=== PATIENT | male | born 1970 | race Caucasian/White ===

== ENCOUNTER 2017-03-31 00:47 | Emergency (ER) | payer MEDICARE ==
[2017-03-31 00:55] VITALS: RESP 18
[2017-03-31] MEDS ORDERED: CEPHALEXIN 500MG STARTER PACK 4 CAP BTL PO STA (01:36)
--- NOTE | 2017-03-31 01:36 | ED ---
Skin/Abscess/FB HPI - General Chief complaint: Skin/Abscess/Foreign Body Stated complaint: bug bite Time Seen by Provider: 03/31/17 01:05 Source: patient, RN notes reviewed, old records reviewed Mode of arrival: ambulatory Limitations: no limitations - History of Present Illness Initial comments: 46 year old male with infected mosquito bite on his back. Reports that his daughter squeezed pus out of it 2 days ago, and is concerned he noticed black over the site. Patient states he has no history of MRSA. He has no fever, chills , nausea, vomiting, chest pain, shortness of breath, or other lesions. - Related Data Home Medications Medication Instructions Recorded Confirmed Albuterol Nebulized [Ventolin 2.5 mg INHALATION RT-Q4H PRN 07/31/16 07/31/16 Nebulized] Albuterol Sulfate [Proair Hfa] 2 puff INHALATION RT-Q6H PRN 07/31/16 07/31/16 Aspirin 81 mg PO DAILY 07/31/16 07/31/16 Nitroglycerin Sl Tabs [Nitrostat] 0.4 mg SUBLINGUAL Q5M PRN 07/31/16 07/31/16 Previous Rx's Medication Instructions Recorded Atorvastatin [Lipitor] 40 mg PO DAILY #30 tab 08/01/16 Cephalexin [Keflex] 500 mg PO Q8HR #21 cap 03/31/17 Mupirocin 2% Oint [Bactroban 2% 1 applic TOPICAL TID #1 tube 03/31/17 Oint] Allergies Allergy/AdvReac Type Severity Reaction Status Date / Time No Known Allergies Allergy Verified 03/31/17 00:55 Review of Systems ROS Statement: Those systems with pertinent positive or pertinent negative responses have been documented in the HPI. ROS Other: All systems not noted in ROS Statement are negative. Past Medical History Past Medical History: Asthma, Chest Pain / Angina, COPD, Hyperlipidemia, Myocardial Infarction ([place]), Sleep Apnea/CPAP/BIPAP Additional Past Medical History / Comment(s): bleeding ulcer Last Myocardial Infarction Date:: 2009 History of Any Multi-Drug Resistant Organisms: None Reported Past Surgical History: Heart Catheterization With Stent Additional Past Surgical History / Comment(s): hernia surgery Past Anesthesia/Blood Transfusion Reactions: No Reported Reaction Additional Past Anesthesia/Blood Transfusion Reaction / Comment(s): PT CODED DURING SX Date of Last Stent Placement:: 2013 Past Psychological History: Anxiety, Depression Smoking Status: Current every day smoker Past Alcohol Use History: Occasional Past Drug Use History: Marijuana - Past Family History Father Family Medical History: Myocardial Infarction ([place]) Additional Family Medical History / Comment(s): ALCOHOLIC Mother Family Medical History: Cancer, Coronary Artery Disease (CAD), Diabetes Mellitus , Myocardial Infarction ([place]) Additional Family Medical History / Comment(s): CABG General Exam - General Exam Comments Initial Comments: Well appearing 46 year old male, no distress. Limitations: no limitations General appearance: alert, in no apparent distress Head exam: Present: atraumatic, normocephalic, normal inspection Eye exam: Present: normal appearance, PERRL, EOMI. Absent: scleral icterus, conjunctival injection, periorbital swelling ENT exam: Present: normal exam, mucous membranes moist Neck exam: Present: normal inspection. Absent: tenderness, meningismus, lymphadenopathy Respiratory exam: Present: normal lung sounds bilaterally. Absent: respiratory distress, wheezes, rales, rhonchi, stridor Cardiovascular Exam: Present: regular rate, normal rhythm, normal heart sounds. Absent: systolic murmur, diastolic murmur, rubs, gallop, clicks GI/Abdominal exam: Present: soft, normal bowel sounds. Absent: distended, tenderness, guarding, rebound, rigid Extremities exam: Present: normal inspection, full ROM, normal capillary refill. Absent: tenderness, pedal edema, joint swelling, calf tenderness Back exam: Present: other (mild erythema lesion over right lumbar paraspinal region. Area of scabbing concerned with Patient concern of "black" to the area. ). Absent: normal inspection Neurological exam: Present: alert, oriented X3, CN II-XII intact Psychiatric exam: Present: normal affect, normal mood Skin exam: Present: warm, dry, intact, normal color. Absent: rash Course Vital Signs 03/31/17 03/31/17 00:52 02:36 Temperature 99.2 F 98.3 F Pulse Rate 93 82 Respiratory 18 18 Rate Blood Pressure 141/77 119/71 O2 Sat by Pulse 98 97 Oximetry Medical Decision Making - Medical Decision Making 46 year old male with infected mosquito bite on his back. Reports that his daughter squeezed pus out of it 2 days ago, and is concerned he noticed black over the site. Patient states he has no history of MRSA. Patient has a 3 cm lesion of erythema and scabbing over posterior right lumbar paraspinal region. No fluctation or drainage. Patient will be started on keflex and mupirocin. Return parameters discussed. Disposition Clinical Impression: Bug bite with infection Disposition: HOME SELF-CARE Condition: Good Instructions: Insect Bite or Sting (ED) Additional Instructions: Monitor for any signs of infection. Complete her antibiotic prescription. Return to the emergency department if any alarming signs or symptoms occur. Prescriptions: Cephalexin [Keflex] 500 mg PO Q8HR #21 cap Mupirocin 2% Oint [Bactroban 2% Oint] 1 applic TOPICAL TID #1 tube Referrals: Shannan Ndiaye MD [Primary Care Provider] - 1-2 days Time of Disposition: 01:32
[2017-03-31 02:40] VITALS: BP 119/71; PULSE 82; TEMP 98.3
== END 2017-03-31 02:06 | disposition home or self-care (01) ==
LOC: EC 00:47
DX: S30.860A Insect bite (nonvenomous) of lower back and pelvis, initial encounter (principal); I25.2 Old myocardial infarction; F17.200 Nicotine dependence, unspecified, uncomplicated; Z79.82 Long term (current) use of aspirin; W57.XXXA Bitten or stung by nonvenomous insect and other nonvenomous arthropods, initial encounter
CPT/HCPCS: 99283

== ENCOUNTER 2021-05-16 09:53 | Day surgery (SDC) | payer MEDICARE ==
[2021-05-12 12:41] VITALS: BMI 29.5
[~2021-05-16 09:53] MED LIST: LACTATED RINGERS 1,000 ML IV SCH; LIDOCAINE 1% (10MG/ML) FOR IV START INTRADERMA PRN
[2021-05-16 10:09] VITALS: TEMP 97.9
[2021-05-16] MEDS ORDERED: LIDOCAINE-D5W PMX 2G/250ML 2,000 MG in DEXTROSE/WATER 1 250ML.BAG IV ONE (10:09)
[2021-05-16] MEDS ORDERED: LACTATED RINGERS 1,000 ML IV ONE (10:09)
[2021-05-16] MEDS ORDERED: LIDOCAINE 1% INJ 10MG/ML (20 ML MDV) ONE (11:29)
[2021-05-16] MEDS ORDERED: fentaNYL (PF) 50 MCG/ML 2 ML AMP ONE (11:29)
[2021-05-16] MEDS ORDERED: PROPOFOL 10 MG/ML 20 ML VIAL IV ONE (11:29)
[2021-05-16] MEDS ORDERED: MIDAZOLAM 2 MG/2 ML VIAL ONE (11:29)
[2021-05-16 12:04] VITALS: RESP 16
--- NOTE | 2021-05-16 12:23 | P.GSHP ---
History of Present Illness H&P Date: 05/16/21 Chief Complaint: GI bleed Is a 50-year-old male undergoing workup for GI bleed. He had an episode of rectal bleeding approximately month ago. Past Medical History Past Medical History: Asthma, Coronary Artery Disease (CAD), Chest Pain / Angina, COPD, Hyperlipidemia, Myocardial Infarction ([place]), Sleep Apnea/CPAP/BIPAP Additional Past Medical History / Comment(s): bleeding ulcer, BLOOD IN STOOL, NO CPAP USED, Last Myocardial Infarction Date:: 2009 History of Any Multi-Drug Resistant Organisms: None Reported Past Surgical History: Heart Catheterization With Stent, Hernia Repair Additional Past Surgical History / Comment(s): hernia surgery Past Anesthesia/Blood Transfusion Reactions: No Reported Reaction Additional Past Anesthesia/Blood Transfusion Reaction / Comment(s): PATIENT CODED DURING SX-COLONOSCOPY 2016 [facility] Date of Last Stent Placement:: 2013 Smoking Status: Current every day smoker - Past Family History Father Family Medical History: Myocardial Infarction ([place]) Additional Family Medical History / Comment(s): ALCOHOLIC Mother Family Medical History: Cancer, Coronary Artery Disease (CAD), Diabetes Mellitus, Myocardial Infarction ([place]) Additional Family Medical History / Comment(s): CABG Medications and Allergies Home Medications Medication Instructions Recorded Confirmed Type Albuterol Nebulized [Ventolin 2.5 mg INHALATION RT-Q4H PRN 07/31/16 05/12/21 History Nebulized] Aspirin 81 mg PO DAILY 07/31/16 05/12/21 History Nitroglycerin Sl Tabs [Nitrostat] 0.4 mg SUBLINGUAL Q5M PRN 07/31/16 05/12/21 History Atorvastatin [Lipitor] 40 mg PO DAILY #30 tab 08/01/16 05/12/21 Rx Cholecalciferol [Vitamin D3 (25 50 mcg PO DAILY 05/12/21 05/12/21 History Mcg = 1000 Iu)] lisinopriL [Zestril] 2.5 mg PO DAILY 05/12/21 05/12/21 History Allergies Allergy/AdvReac Type Severity Reaction Status Date / Time No Known Allergies Allergy Verified 05/12/21 12:15 Surgical - Exam Vital Signs Temp Pulse Resp BP Pulse Ox 97.9 F 78 18 135/81 97 05/16/21 10:08 05/16/21 10:08 05/16/21 10:08 05/16/21 10:08 05/16/21 10:08 - General well developed, well nourished, no distress - Eyes PERRL - ENT normal pinna - Neck no masses - Respiratory normal expansion - Cardiovascular Rhythm: regular - Abdomen Abdomen: soft, non tender Assessment and Plan Assessment: GI bleed. We'll perform EGD and colonoscopy
--- NOTE | 2021-05-16 12:27 | P.OP ---
Date of Procedure: 05/16/21 Preoperative Diagnosis: GI bleed Postoperative Diagnosis: External hemorrhoids Procedure(s) Performed: EGD Anesthesia: MAC Surgeon: Abdon Sahu Pathology: other (Antrum) Condition: stable Disposition: PACU Description of Procedure: Patient's placed on the endoscopy table in the lateral position. He received IV sedation. The gastroscope placed oropharynx passed in the esophagus into the stomach. The scope was then placed through the pylorus. The first and second portion duodenum appeared normal. Scope was then brought back the antrum this was mildly inflamed. A biopsies performed. Scope was unretroflexed and remainder stomach appeared normal. The GE junction was at 40 cm. The distal es ophagus appeared normal. The proximal esophagus. Normal. Scope was withdrawn. There is known to any GI bleed in the upper GI tract. Next digital rectal exam was performed which revealed external hemorrhoids. Flexible colonoscope was then placed patient anus passed rotator entire colon. The ileocecal valve sutures. Cecum, ascending and transverse colon appeared normal. The descending and sigmoid colon appeared normal. No polyps or tumors or diverticula seen. Scope brought back through the anus and there was minimal internal hemorrhoids however there were significant external hemorrhoids. The scope was withdrawn for patient. There is known to any GI bleed entire GI tract. It is presumed patient's previous GI bleed was due to external hemorrhoids.
[2021-05-16 12:31] VITALS: BP 101/65; PULSE 64
== END 2021-05-16 12:43 | disposition home or self-care (01) ==
LOC: ORWHC2ENDO 09:53
PROVIDERS: ATTEND Surgery
DX: K29.50 Unspecified chronic gastritis without bleeding (principal); K64.4 Residual hemorrhoidal skin tags; K92.1 Melena; I25.10 Atherosclerotic heart disease of native coronary artery without angina pectoris; J44.9 Chronic obstructive pulmonary disease, unspecified; I25.2 Old myocardial infarction; F17.210 Nicotine dependence, cigarettes, uncomplicated; E78.5 Hyperlipidemia, unspecified; G47.33 Obstructive sleep apnea (adult) (pediatric); F41.9 Anxiety disorder, unspecified; F32.9 Major depressive disorder, single episode, unspecified; I10 Essential (primary) hypertension; Z79.899 Other long term (current) drug therapy; Z79.82 Long term (current) use of aspirin
CPT/HCPCS: 88305; 45378; 43239; J2250; J2001; J3010; J2704

== ENCOUNTER → 2024-08-27 | Outpatient (CLI) | payer MEDICARE ==
[2024-08-27 19:33] LABS: ALT 47 U/L (10-49); AST 33 U/L (14-35); LDL Cholesterol,Calculated 74.4 mg/dL (0.0-131.0)
== END | disposition home or self-care (01) ==
LOC: LABWHC1 13:31
PROVIDERS: ATTEND Internal Medicine Cardiovascular Disease
DX: E78.2 Mixed hyperlipidemia (principal)
CPT/HCPCS: 36415; 80061; 84450; 84460

== ENCOUNTER → 2024-11-24 | Outpatient (CLI) | payer MEDICARE ==
[2024-11-24 19:48] LABS: Basophils # (A) 0.06 X 10*3/uL (0.00-0.10); Basophils % (A) 0.8 %; Eosinophils # (A) 0.21 X 10*3/uL (0.04-0.35); Eosinophils % (A) 2.9 %; HCT 50.7 % (39.6-50.0); HGB 17.3 g/dL (13.0-17.0); Lymphocytes # (A) 2.41 X 10*3/uL (0.90-5.00); Lymphocytes % (A) 33.4 %; MCH 31.7 pg (27.0-32.0); MCHC 34.1 g/dL (32.0-37.0); MCV 92.9 FL (80.0-97.0); Mean Platelet Volume 9.4 FL (9.5-12.2); Monocytes # (A) 0.77 X 10*3/uL (0.20-1.00); Monocytes % (A) 10.7 %; NRBC Per 100 WBC 0 X 10*3/uL (0.00-0.01); Neutrophils # (A) 3.73 X 10*3/uL (1.80-7.70); Neutrophils % (A) 51.8 %; Platelet Count 325 X 10*3/uL (140-440); RBC 5.46 X 10*6/uL (4.40-5.60); RDW 12.9 % (11.5-14.5); WBC 7.21 X 10*3/uL (4.50-10.00)
[2024-11-24 20:50] LABS: ALT 37 U/L (10-49); AST 28 U/L (14-35); Albumin 4.4 g/dL (3.8-4.9); Albumin/Globulin Ratio 1.91 Ratio (1.60-3.17); Alkaline Phosphatase 94 U/L (41-126); Blood Urea Nitrogen 7.9 mg/dL (9.0-27.0); Calcium 9.2 mg/dL (8.7-10.3); Carbon Dioxide 26.2 mmol/L (21.6-31.8); Chloride 104 mmol/L (96-109); Globulin 2.3 g/dL (1.6-3.3); Glucose 80 mg/dL (70-110); Potassium 4.4 mmol/L (3.5-5.5); Prostate Specific Antigen 0.25 ng/mL (0.000-3.500); Sodium 141 mmol/L (135-145); Total Bilirubin 0.4 mg/dL (0.3-1.2); Total Protein 6.7 g/dL (6.2-8.2)
== END | disposition home or self-care (01) ==
LOC: LABWHC1 15:46
PROVIDERS: ATTEND Family Medicine
DX: Z12.5 Encounter for screening for malignant neoplasm of prostate (principal); I10 Essential (primary) hypertension; E55.9 Vitamin D deficiency, unspecified
CPT/HCPCS: 36415; 80053; 82306; 84153; 84443; 85025

== ENCOUNTER → 2024-12-30 | Outpatient (CLI) | payer MEDICARE ==
--- NOTE | 2024-12-30 13:35 | CTL ---
EXAMINATION TYPE: CT Low Dose Lung DATE OF EXAM: 12/30/2024 12:57 PM COMPARISON: None. CLINICAL INDICATION: Male, 54 years old with history of Z12.2 enct scrn for mariannaig jose guadalupe, F17.210 nicot depen; SCREENING FOR MALIGNANT NEOPLASM, FAMILY HX OF LYMPHOMA, history of tobacco use. TECHNIQUE: Multiple axial non-contrast scans were obtained from approximately the lung apices through the upper abdomen. Coronal and sagittal reformatted images were obtained. Low dose technique was uti lized. MIP were created on a separate workstation and submitted for review. CT DLP: 154.50 mGycm, Automated exposure control for dose reduction was used. CT Contrast: Contrast used: None Oral contrast used: None FINDINGS: Lack of intravenous contrast and low dose technique limits the evaluation of the vascular and soft ti ssue structures. LUNGS: No evidence of pulmonary fibrosis. No evidence of focal consolidation, pneumothorax or pleural effusion. Paraseptal and Centrilobular emphysema changes. Nodules: RUL: None. RML: None. RLL: None. SHAUN: None. LLL: None. AIRWAY: Patent and unremarkable. HEART: Size within normal limits. Moderate coronary artery calcifications present. MEDIASTINUM: No gross evidence of adenopathy. VASCULATURE: No aortic aneurysm. MUSCULOSKELETAL: Disc degeneration changes are present throughout the thoracolumbar spine. SOFT TISSUES/LYMPH NODES: Unremarkable. LOWER NECK: No significant findings. UPPER ABDOMEN: Calcified granuloma in this plane. IMPRESSION: 1. No clinically significant pulmonary nodules. 2. Mild emphysema. CT LUNG RAD AND CT CHEST RECOMMENDATION: Lung-Rad 1 Negative: Continue annual screening with LDCT in 12 months. S Modifier (other clinically significant findings): None Recommend smoking cessation (if current smoker), or continuation of smoking cessation (if prior smoke r). Annual screening for lung cancer with low-dose computed tomography is recommended in adults ages 55 to 77 years who have a 30 pack-year smoking history and currently smoke or have quit within the pa st 15 years. Screening should be discontinued once a person has not smoked for 15 years or develops a health problem that substantially limits life expectancy or the ability or willingness to have curat margarita lung surgery. Lung rads 2021 [email or web address] [email or web address], , 12/30/2024 1:33 PM
== END | disposition home or self-care (01) ==
LOC: RADCTMAIN 12:31
PROVIDERS: ATTEND Internal Medicine
DX: Z12.2 Encounter for screening for malignant neoplasm of respiratory organs (principal); F17.210 Nicotine dependence, cigarettes, uncomplicated; J43.2 Centrilobular emphysema
CPT/HCPCS: 71271